=== PATIENT | female | born 2000 | race African-American/Black ===

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

== ENCOUNTER 2021-03-10 00:41 | Emergency (ER) | payer OTHER ==
[2021-03-10 01:01] VITALS: BP 108/71; BMI 25.3
[2021-03-10] MEDS ORDERED: ACETAMINOPHEN 325 MG TABLET (FP) PO ONE (01:35)
[2021-03-10] MEDS ORDERED: ACETAMINOPHEN 325 MG TABLET (FP) ONE (01:39)
[2021-03-10] MEDS ORDERED: CEPHALEXIN MONOHYDRATE 500 MG CAPSULE (UD) PO ONE (01:54)
[2021-03-10 02:13] LABS: EPI CELLS >36 /uL (0-25.1); HYALINE CASTS 3 /uL (0-3.1); URINE APPEARANCE CLOUDY; URINE BACTERIA 644 /uL (0-1359); URINE BILIRUBIN NEGATIVE (NEGATIVE); URINE COLOR YELLOW; URINE GLUCOSE (UA) NEGATIVE (NEGATIVE); URINE KETONE NEGATIVE (NEGATIVE); URINE LEUK ESTERASE TRACE (NEGATIVE); URINE NITRITE NEGATIVE (NEGATIVE); URINE PROTEIN NEGATIVE (NEGATIVE); URINE RBC 9 /uL (0-23.9); URINE UROBILINOGEN 0.2 mg/dL (0.2-1.0); URINE WBC 22 /uL (0-25.8)
[2021-03-10 02:38] VITALS: PULSE 87; TEMP 98.8
[2021-03-10 02:55] LABS: BASO % 0.3 % (0-2.0); EOS % 0.7 % (0-4.5); HEMATOCRIT 36.3 % (32.4-45.2); HEMOGLOBIN 11.9 GM/dL (10.7-15.3); LYMPH % 15.6 % (8-40); MCH 25.8 pg (25.7-33.7); MCHC 32.8 g/dl (32.0-36.0); MEAN CELL VOLUME 78.5 fl (80-96); MEAN PLT VOLUME 7.9 fl (7.5-11.1); MONO % 6.4 % (3.8-10.2); PLATELET COUNT 359 K/MM3 (134-434); RBC 4.63 M/mm3 (3.60-5.2); RDW 13.9 % (11.6-15.6); WHITE BLOOD COUNT 10.7 K/mm3 (4.0-10.0)
[2021-03-10 03:21] LABS: ALBUMIN 3.7 g/dl (3.4-5.0); BLOOD UREA NITROGEN 7.2 mg/dL (7-18); CALCIUM 8.9 mg/dL (8.5-10.1)
[2021-03-10 03:25] LABS: CREATININE 0.6 mg/dL (0.55-1.3)
[2021-03-10 03:27] LABS: BILIRUBIN,TOTAL 0.3 mg/dL (0.2-1)
[2021-03-10] MEDS ORDERED: CEPHALEXIN MONOHYDRATE 500 MG CAPSULE (UD) ONE (04:22)
== END 2021-03-10 04:24 | disposition home or self-care (01) ==
LOC: JER 00:41
DX: R50.9 Fever, unspecified (principal); R10.9 Unspecified abdominal pain
CPT/HCPCS: 36415; 80053; 81003; 84703; 85025; 87086; 99284-25

== ENCOUNTER 2022-03-22 22:44 | Emergency (ER) | payer OTHER ==
[2022-03-22 22:53] VITALS: BP 121/82; PULSE 109; TEMP 98.6; BMI 26.0
[2022-03-23] MEDS ORDERED: LIDOCAINE VISCOUS 2% ORAL/TOP 15 ML UNIT-DOSE CUP MM ONE (00:23)
[2022-03-23] MEDS ORDERED: LIDOCAINE VISCOUS 2% ORAL/TOP 15 ML UNIT-DOSE CUP ONE ×2 (00:24→00:28)
[2022-03-23] MEDS ORDERED: CLINDAMYCIN HCL 150 MG CAPSULE (FP) PO ONE (00:36)
[2022-03-23] MEDS ORDERED: ACETAMINOPHEN 500 MG TABLET (FP) PO ONE (01:42)
[2022-03-23] MEDS ORDERED: CLINDAMYCIN HCL 150 MG CAPSULE (FP) ONE (01:44)
[2022-03-23] MEDS ORDERED: ACETAMINOPHEN 325 MG TABLET (FP) ONE (01:44)
[2022-03-23] MEDS ORDERED: CLINDAMYCIN 600MG PREMIX IVPB 600 MG/50 ML BAG IVPB ONE ×2 (03:02→03:05)
[2022-03-23 03:09] LABS: BASO % 0.1 % (0-2.0); EOS % 0.7 % (0-4.5); HEMATOCRIT 38.1 % (32.4-45.2); HEMOGLOBIN 12.7 GM/dL (10.7-15.3); LYMPH % 18.6 % (8-40); MCH 26.1 pg (25.7-33.7); MCHC 33.4 g/dl (32.0-36.0); MEAN CELL VOLUME 78.1 fl (80-96); MEAN PLT VOLUME 7.7 fl (7.5-11.1); NEUT % 71.6 % (42.8-82.8); PLATELET COUNT 293 10^3/uL (134-434); RBC 4.88 M/mm3 (3.60-5.2); RDW 14.4 % (11.6-15.6)
[2022-03-23 03:28] LABS: ALBUMIN 3.5 g/dl (3.4-5.0); CALCIUM 9.3 mg/dL (8.5-10.1)
[2022-03-23 03:31] LABS: CREATININE 0.5 mg/dL (0.55-1.3)
[2022-03-23 03:33] LABS: BILIRUBIN,TOTAL 0.3 mg/dL (0.2-1); TOT PROT 7.4 g/dl (6.4-8.2)
[2022-03-23 03:49] LABS: ERYTHROCYTE SEDIMENTATION RATE 64 mm/hr (0-20)
== END 2022-03-23 04:05 | disposition home or self-care (01) ==
LOC: JER 22:44
DX: L02.31 Cutaneous abscess of buttock (principal)
CPT/HCPCS: 36415; 76882-TC-RT-FY; 80053; 85025; 85651; 99284-25

== ENCOUNTER 2022-03-25 19:10 | Emergency (ER) | payer OTHER ==
[2022-03-25 19:40] VITALS: BP 118/72; PULSE 110; TEMP 99.8; BMI 25.1
[2022-03-25 22:18] LABS: BASO % 0.2 % (0-2.0); EOS % 0.5 % (0-4.5); HEMATOCRIT 40.4 % (32.4-45.2); HEMOGLOBIN 13.5 GM/dL (10.7-15.3); LYMPH % 17.3 % (8-40); MCH 25.9 pg (25.7-33.7); MCHC 33.4 g/dl (32.0-36.0); MEAN CELL VOLUME 77.6 fl (80-96); MEAN PLT VOLUME 7.4 fl (7.5-11.1); MONO % 7.1 % (3.8-10.2); NEUT % 74.9 % (42.8-82.8); PLATELET COUNT 340 10^3/uL (134-434); RBC 5.21 M/mm3 (3.60-5.2); RDW 14.5 % (11.6-15.6); WHITE BLOOD COUNT 9.5 K/mm3 (4.0-10.0)
[2022-03-25 22:46] LABS: CALCIUM 9.8 mg/dL (8.5-10.1)
[2022-03-25 22:47] LABS: BLOOD UREA NITROGEN 7.8 mg/dL (7-18)
[2022-03-25 22:50] LABS: CREATININE 0.6 mg/dL (0.55-1.3)
[2022-03-25 22:51] LABS: BILIRUBIN,TOTAL 0.3 mg/dL (0.2-1); TOT PROT 8.6 g/dl (6.4-8.2)
== END 2022-03-25 22:59 | disposition home or self-care (01) ==
LOC: JER 19:10
DX: L05.01 Pilonidal cyst with abscess (principal)
CPT/HCPCS: 36415; 80053; 85025; 99283-25

== ENCOUNTER 2022-05-25 20:07 | Emergency (ER) | payer OTHER ==
[2022-05-25 20:16] VITALS: BP 118/77; PULSE 93; RESP 19; TEMP 98.1; BMI 25.3
== END 2022-05-25 22:19 | disposition home or self-care (01) ==
LOC: JERFT 20:07
DX: Z48.00 Encounter for change or removal of nonsurgical wound dressing (principal)
CPT/HCPCS: 99281-25

== ENCOUNTER 2022-07-31 09:50 | Emergency (ER) | payer OTHER ==
[2022-07-31 10:27] VITALS: BP 117/76; PULSE 82; RESP 18; TEMP 98.3; BMI 25.3
== END 2022-07-31 12:47 | disposition home or self-care (01) ==
LOC: JER 09:50
DX: B34.9 Viral infection, unspecified (principal)
CPT/HCPCS: 99283-25

== ENCOUNTER 2022-10-05 15:19 | Emergency (ER) | payer OTHER ==
[2022-10-05 15:42] VITALS: BP 117/69; RESP 18; TEMP 100.8; BMI 26.0
[2022-10-05] MEDS ORDERED: IBUPROFEN 400 MG TABLET (FP) PO ONE ×2 (16:38)
[2022-10-05] MEDS ORDERED: KETOROLAC TROMETHAMINE 30 MG/1 ML VIAL IVPUSH ONE (16:55)
[2022-10-05] MEDS ORDERED: SODIUM CHLORIDE 0.9% 500 ML INFUS.BAG IV ONE (16:55)
[2022-10-05] MEDS ORDERED: METOCLOPRAMIDE HCL INJECTION 10 MG/2 ML VIAL IVPUSH ONE (16:55)
[2022-10-05] MEDS ORDERED: METOCLOPRAMIDE HCL INJECTION 10 MG/2 ML VIAL ONE (17:17)
[2022-10-05] MEDS ORDERED: KETOROLAC TROMETHAMINE 30 MG/1 ML VIAL ONE (17:17)
[2022-10-05 18:52] VITALS: PULSE 95
== END 2022-10-05 18:57 | disposition home or self-care (01) ==
LOC: JER 15:19
PROC: 3E0333Z Introduction of Anti-inflammatory into Peripheral Vein, Percutaneous Approach (ICD-10-PCS; principal; 2022-10-05)
PROC: 3E033GC Introduction of Other Therapeutic Substance into Peripheral Vein, Percutaneous Approach (ICD-10-PCS; 2022-10-05)
DX: J09.X2 Influenza due to identified novel influenza A virus with other respiratory manifestations (principal); R50.9 Fever, unspecified; R05.1 Acute cough
CPT/HCPCS: 0241U-QW; 99284-25

== ENCOUNTER 2023-01-15 09:17 | Emergency (ER) | payer OTHER ==
[2023-01-15 09:30] VITALS: BP 147/79; PULSE 103; RESP 18; TEMP 98.6; BMI 26.2
[2023-01-15] MEDS ORDERED: ONDANSETRON *ODT* 4 MG TABLET SL ONE (09:43)
[2023-01-15] MEDS ORDERED: KETOROLAC TROMETHAMINE 30 MG/1 ML VIAL IM ONE (09:44)
[2023-01-15] MEDS ORDERED: ONDANSETRON *ODT* 4 MG TABLET ONE (09:45)
[2023-01-15] MEDS ORDERED: KETOROLAC TROMETHAMINE 30 MG/1 ML VIAL ONE (09:46)
[2023-01-15 10:29] LABS: EPI CELLS 24 /uL (0-25.1); HCG,QUALITATIVE URINE Negative; HYALINE CASTS 1 /uL (0-3.1); URINE APPEARANCE CLEAR; URINE BACTERIA 156 /uL (0-1359); URINE BILIRUBIN NEGATIVE (NEGATIVE); URINE COLOR ORANGE; URINE GLUCOSE (UA) NEGATIVE (NEGATIVE); URINE KETONE NEGATIVE (NEGATIVE); URINE LEUK ESTERASE 1+ (NEGATIVE); URINE NITRITE NEGATIVE (NEGATIVE); URINE PROTEIN TRACE (NEGATIVE); URINE RBC 5097 /uL (0-23.9); URINE UROBILINOGEN 0.2 mg/dL (0.2-1.0); URINE WBC 58 /uL (0-25.8)
== END 2023-01-15 11:09 | disposition home or self-care (01) ==
LOC: JER 09:17
PROC: 3E0233Z Introduction of Anti-inflammatory into Muscle, Percutaneous Approach (ICD-10-PCS; principal; 2023-01-15)
DX: N94.6 Dysmenorrhea, unspecified (principal)
CPT/HCPCS: 81003; 84703; 87086; 99284-25; Q0162

== ENCOUNTER 2023-04-30 19:44 | Emergency (ER) | payer OTHER ==
[2023-04-30 19:56] VITALS: BP 122/82; PULSE 78; RESP 19; TEMP 98; BMI 26.5
[2023-04-30] MEDS ORDERED: IBUPROFEN 400 MG TABLET (FP) PO ONE ×2 (21:02→21:07)
== END 2023-04-30 21:27 | disposition home or self-care (01) ==
LOC: JERFT 19:44
DX: H92.02 Otalgia, left ear (principal); H60.502 Unspecified acute noninfective otitis externa, left ear
CPT/HCPCS: 99283-25

== ENCOUNTER 2024-04-27 23:12 | Emergency (ER) | payer OTHER ==
[2024-04-27 23:17] VITALS: BP 118/81; PULSE 88; RESP 20; TEMP 98.6; BMI 28.7
== END 2024-04-28 01:12 | disposition home or self-care (01) ==
LOC: JER 23:12
PROC: 0H9T0ZZ Drainage of Right Breast, Open Approach (ICD-10-PCS; principal; 2024-04-27)
DX: N61.1 Abscess of the breast and nipple (principal)
CPT/HCPCS: 10060; 99284-25

== ENCOUNTER 2024-12-14 13:05 | Emergency (ER) | payer OTHER ==
[2024-12-14 13:19] VITALS: BP 113/72; PULSE 95; RESP 18; TEMP 98.8; BMI 28.3
[2024-12-14] MEDS ORDERED: IBUPROFEN 600 MG TABLET (FP) PO ONE (13:55)
[2024-12-14] MEDS ORDERED: AMOX TR/POT CLAV 875MG/125MG TABLETS (FP) ONE (13:55)
[2024-12-14] MEDS: IBUPROFEN 600 MG TABLET (FP) PO ONE (13:57)
[2024-12-14] MEDS: AMOX TR/POT CLAV 875MG/125MG TABLETS (FP) PO ONE (13:57)
== END 2024-12-14 14:31 | disposition home or self-care (01) ==
LOC: JERFT 13:05
DX: R22.0 Localized swelling, mass and lump, head (principal); K02.7 Dental root caries
CPT/HCPCS: 99283-25